=== PATIENT | male | born 1935 | race Caucasian/White ===

== ENCOUNTER 2022-07-27 17:46 | Inpatient (IN) | payer MEDICARE ==
[~2022-07-27] VITALS: Ht 165.1 cm; Wt 46.3 kg
[2022-07-27 18:09] LABS: ABG BASE EXCESS -1.9 mmol/L; ABG PCO2 24.7 mmHg (35.0-45.0); ABG PH 7.543 (7.350-7.450); ABG PO2 146.3 mmHg (75.0-100.0); COHb 0.3 % (0.5-1.5); MetHb 0.8 % (0.0-1.5); O2Hb 97.9 % (94.0-97.0); SITE, ABG Right Radial; VENT MODE, BG 15 LPM NRB
[2022-07-27 18:56] LABS: CALCIUM, SERUM 7.6 mg/dL (8.5-10.1); CARBON DIOXIDE 21 mmol/L (21-32); CHLORIDE 108 mmol/L (98-107); CREATININE 2.2 mg/dL (0.6-1.3); GLUCOSE 110 mg/dL (74-106); POTASSIUM 3.7 mmol/L (3.5-5.1); SODIUM SERUM 148 mmol/L (136-145)
[2022-07-27 19:03] LABS: ALANINE AMINOTRANSFERASE 82 U/L (12-78); ALBUMIN 1.7 g/dL (3.4-5.0); ALKALINE PHOSPHATASE 970 U/L (46-116); ASPARTATE AMINOTRANSFERASE 66 U/L (15-37); BILIRUBIN,DIRECT 0.5 mg/dL (0.0-0.2); BILIRUBIN,TOTAL 0.7 mg/dL (0.2-1.0)
[2022-07-27] MEDS ORDERED: MAGN400O6 GT (19:03)
[2022-07-27] MEDS ORDERED: IPRA12.9 INH (19:03)
[2022-07-27] MEDS ORDERED: ACET-868 GT (19:03)
[2022-07-27] MEDS ORDERED: INSU100V27 SQ ×2 (19:03)
[2022-07-27] MEDS ORDERED: ZINC50TA65 GT (19:03)
[2022-07-27] MEDS ORDERED: AMIN30LI2 GT (19:03)
[2022-07-27] MEDS ORDERED: MULT-447 GT (19:03)
[2022-07-27] MEDS ORDERED: ARGI1POW13 GT (19:03)
[2022-07-27] MEDS ORDERED: NA P133E RC (19:03)
[2022-07-27] MEDS ORDERED: ASCO-352 GT (19:03)
[2022-07-27] MEDS ORDERED: ERGO500040 GT (19:03)
[2022-07-27] MEDS ORDERED: TRAM50TA2 GT (19:03)
[2022-07-27] MEDS ORDERED: BISA10SU11 RC (19:03)
[2022-07-27] MEDS ORDERED: BUDE180A IH (19:03)
[2022-07-27] MEDS ORDERED: LANS30CA56 GT (19:03)
[2022-07-27] MEDS ORDERED: DOCU-141 GT (19:03)
[2022-07-27] MEDS ORDERED: ALBU8.5H8 IH (19:03)
[2022-07-27] MEDS ORDERED: LEVE100S GT (19:03)
[2022-07-27] MEDS ORDERED: ATOR40TA GT (19:03)
[2022-07-27] MEDS ORDERED: NUT.237L30 GT (19:03)
[2022-07-27] MEDS ORDERED: INSU100V7 SQ (19:03)
[2022-07-27 19:04] LABS: UREA NITROGEN, BLOOD 170 mg/dL (7-18)
--- NOTE | 2022-07-27 19:10 | NUR ---
PAGED DR. RUVALCABA FOR CONSULT
--- NOTE | 2022-07-27 19:11 | NUR ---
DEAN CHAVEZ FOR CONSULT
--- NOTE | 2022-07-27 19:14 | NUR ---
ROHIT CÁRDENAS -[phone], SISTER
[2022-07-27] MEDS: IPRATROPIUM BROMIDE 14 GM INHALER (or 12.9 GM) IH SCH (19:30)
--- NOTE | 2022-07-27 19:31 | NUR ---
URINE SAMPLE COLLECTED. SENT TO LAB
[2022-07-27 20:11] LABS: BASOPHILS % (AUTO) 0.1 % (0.0-2.0); LYMPHOCYTES # (AUTO) 0.9 K/uL (0.8-4.8); MEAN CORPUSCULAR HGB CONC 27 g/dl (31.0-36.0); MEAN CORPUSCULAR VOLUME 113 fL (80-96); MONOCYTES # (AUTO) 0.6 K/uL (0.1-1.30); NEUTROPHILS # (AUTO) 13.2 K/uL (1.8-8.9); NEUTROPHILS % (AUTO) 89.9 % (43.0-81.0); PLATELET COUNT (AUTO) 521 K/uL (150-450); WHITE BLOOD COUNT (AUTO) 14.7 K/uL (4.3-11.0)
[2022-07-27 20:31] LABS: HEMATOCRIT 15 % (39-51)
--- NOTE | 2022-07-27 20:32 | NUR ---
DR LUCERO ON THE PHONE WITH DR RUVALCABA NEUROSURGEON
--- NOTE | 2022-07-27 20:45 | NUR ---
CONSENT FOR BLOOD TRANSFUSION WS OBTAINED OVER THE PHONE FROM THE SISTER. WITHNESSED BY THE SECOND RN
--- NOTE | 2022-07-27 20:55 | NUR ---
ATTEMPTED TO GIVE REPORT. PER DARRYL CRUZ RN NURSE ASSIGNED TO THE PATIENT IS DISCHARGING A PATIENT RIGHT NOW. WILL CALL AGAIN
[2022-07-27 21:19] LABS: BILIRUBIN,URINE NEGATIVE (NEGATIVE); COLOR,URINE YELLOW (YELLOW); LEUKOCYTE ESTERASE ,URINE NEGATIVE (NEGATIVE); NITRITE, URINE NEGATIVE (NEGATIVE); PH,URINE 5.5 (5.0-8.0); PROTEIN,URINE NEGATIVE (NEGATIVE); UGLUCOSE NEGATIVE (NEGATIVE); UROBILINOGEN,URINE 0.2 EU/dL (0.2)
[2022-07-27 21:25] LABS: BACTERIA,URINE 2+ /HPF (None Seen); RBC,URINE 21-50 /HPF (0-2); WBC,URINE 0-2 /HPF (0-3)
[2022-07-27 21:26] LABS: SQUAMOUS EPITHELIAL CELL,UR 21-50 /HPF (None Seen)
--- NOTE | 2022-07-27 21:27 | NUR ---
TRANSFERRED TO [facility] UNDER ACLS
[2022-07-27 21:30] VITALS: BP 111/47
--- NOTE | 2022-07-27 21:30 | NUR ---
CLINICAL REHABILITATION AIDE NOTES: PT TRANSFERRED TO [facility] FROM ER [facility]IA [facility], PLACED IN ROOM 106 BED 1. PT AWAKE, NON-VERBAL. ON NON-REBREATHING AT 15L AND PT TOLERATED WELL. O2 SAT 98%. NOTED WHEEZING. IV ACCESS ON RAC#20G AND LT HAND#20G INTACT AND PATENT. NO S/S OF INFILTRATIONS. NO FACIAL GRIMACING NOTED. PT KEPT MOVING HIS MASK. APPLIED BILATERAL SOFT RESTRAINTS. BODY ASSESSMENT DONE. NOTED REDNESS ON BACK, SACRAL AREA AND RT HEEL. NOTED OPEN SKIN WITH SCAB ON RT LEG, DTI ON LT HEEL. SKIN EXCORIATION ON BOTH BUTTOCKS AREA. WOUND CARE CONSULT DONE. ALL SAFETY MEASURES IN PLACE. ON AIRBORNE/DROPLET PRECAUTION FOR COVID POSITIVE. BED IN LOWEST POSITION AND LOCKED. PLACE CALL LIGHT WITH IN REACH. WILL CONTINUE TO MONITOR
[2022-07-27] MEDS ORDERED: CEFTRIAXONE 1 G in IV D5W 50 ML IV SCH (22:00)
[2022-07-27] MEDS ORDERED: ONDANSETRON HCL/PF 4 MG/2 ML VIAL IVP PRN (22:00)
[2022-07-27] MEDS ORDERED: ACETAMINOPHEN 650 MG/SUPP.RECT RC PRN (22:00)
[2022-07-27] MEDS ORDERED: CEFTRIAXONE 1 G VIAL ONE (22:23)
[2022-07-27] MEDS: PANTOPRAZOLE 40 MG VIAL IV SCH (22:42)
[2022-07-27] MEDS: DEXAMETHASONE SOD PHOSPHATE 10 MG/ML VIAL IV SCH (22:43)
[2022-07-27] MEDS: IV NS 0.9% 1,000 ML IV PRN (22:44)
[2022-07-27] MEDS ORDERED: AZITHROMYCIN 500 MG VIAL ONE (23:16)
[2022-07-27] MEDS: AZITHROMYCIN 500 MG in IV D5W 250 ML IV SCH (23:30)
[2022-07-27 23:58] LABS: BASOPHILS % (MANUAL) 0 % (0.0-2.0); EOSINOPHILS % (MANUAL) 0 % (0-4); LYMPHOCYTES % (MANUAL) 8 % (16-48); MONOCYTES % (MANUAL) 6 % (0-11.0); NEUTROPHILS % (MANUAL) 86 (42-76)
[2022-07-28] VITALS (19 sets, daily range): BP systolic 91–125; BP diastolic 41–78
--- NOTE | 2022-07-28 01:53 | NUR ---
RN NOTES: STARTED 1 UNIT OF BLOOD TRANSFUSION. PT AFEBRILE. VITAL SIGN STABLE. WILL CONTINUE TO MONITOR
--- NOTE | 2022-07-28 02:10 | NUR ---
RN NOTES: AFTER 15 MINUTES OF TRANSFUSING BLOOD. NO ADVERSE REACTION NOTED. AFEBRILE. NO RASH NOTED. WILL CONTINUE TO MONITOR
--- NOTE | 2022-07-28 04:38 | NUR ---
RN NOTES: 1 UNIT OF BLOOD TRANSFUSION COMPLETED AND PT TOLERATED WELL. ANOTHER 1 UNIT STARTED. PT STILL AFEBRILE. NO ADVERSE REACTIONS NOTED. VITAL SIGN STABLE. WILL CONTINUE TO MONITOR
[2022-07-28] MEDS ORDERED: GLUCERNA 1.2 1,000 ML BOTTLE NG PRN (06:00)
[2022-07-28] MEDS ORDERED: DEXTROSE 50%-WATER 50 ML DISP.SYRIN IV PRN (06:00)
[2022-07-28] MEDS: BLOOD SUGAR DIAGNOSTIC 1 EACH STRIP IN SCH ×3 (06:59→18:13)
[2022-07-28] MEDS: INSULIN REGULAR, HUMAN 100 UNIT/ML 3 ML VIAL SQ PRN ×3 (07:00→17:48)
--- NOTE | 2022-07-28 07:01 | NUR ---
RN NOTES: PT'S BLOOD SUGAR 170. NO COVERAGE GIVEN. PT NPO STATUS. GTUBE FEEDING DIDN'T START YET. NO S/S OF HYPER/HYPOGLYCEMIA. WILL CONTINUE TO MONITOR
--- NOTE | 2022-07-28 07:25 | NUR ---
SUPERVISOR DRAPERY HANGING OPENING NOTES Received pt awake in bed. Non verbal and unable to follow command. On isolation for COVID. No signs of pain or discomfort at this time. Pt is on a non rebreather 15L and tolerating it well. IV access on RAC 20G and left hand 20G patent and intact. Pt is currently receiving blood transfusion and tolerating it well. HOB elevated to 30-45 degrees. Siderails up at all times. Call light within reach. Will continue to monitor.
[2022-07-28] MEDS ORDERED: ERGOCALCIFEROL (VITAMIN D 2) 50,000 UNIT CAPSULE GT SCH (09:00)
[2022-07-28] MEDS ORDERED: MULTIVITAMIN LIQ 5 ML UDC GT SCH (09:00)
[2022-07-28] MEDS ORDERED: CEFEPIME 2 GM in IV D5W 100 ML IV SCH (09:00)
[2022-07-28 09:03] LABS: BASOPHILS % (AUTO) 0.1 % (0.0-2.0); LYMPHOCYTES # (AUTO) 0.2 K/uL (0.8-4.8); LYMPHOCYTES % (AUTO) 1.4 % (20.0-44.0); MEAN CORPUSCULAR HGB CONC 31 g/dl (31.0-36.0); MEAN CORPUSCULAR VOLUME 91 fL (80-96); MONOCYTES # (AUTO) 0.2 K/uL (0.1-1.30); MONOCYTES % (AUTO) 1.5 % (2.0-12.0); NEUTROPHILS # (AUTO) 16.3 K/uL (1.8-8.9); PLATELET COUNT (AUTO) 396 K/uL (150-450); RED BLOOD CELL COUNT(AUTO) 2.19 MIL/uL (4.5-6.0); WHITE BLOOD COUNT (AUTO) 16.8 K/uL (4.3-11.0)
[2022-07-28 09:16] LABS: HEMATOCRIT 20 % (39-51); HEMOGLOBIN 6.2 g/dL (13.5-17.5)
[2022-07-28] MEDS: PANTOPRAZOLE 40 MG VIAL IV SCH (09:19)
[2022-07-28] MEDS: DEXAMETHASONE SOD PHOSPHATE 10 MG/ML VIAL IV SCH (09:19)
[2022-07-28] MEDS: ZINC SULFATE 220 MG CAPSULE PO SCH (09:21)
[2022-07-28] MEDS: DOCUSATE SODIUM 100 MG CAPSULE PO SCH (09:21)
[2022-07-28] MEDS: LEVETIRACETAM SOL (5 ML) 100 MG/ML UDC GT SCH ×2 (09:21→21:40)
[2022-07-28] MEDS: ASCORBIC ACID 500 MG TABLET GT SCH (09:22)
--- NOTE | 2022-07-28 09:30 | NUR ---
PT.EEN BY DR. MALDONADO DISCUSSED POLST DNR/DNI,WILL CONTINUE CARE IN [facility] PER MD.
[2022-07-28 09:56] LABS: CARBON DIOXIDE 19 mmol/L (21-32); CHLORIDE 114 mmol/L (98-107); CREATININE 1.8 mg/dL (0.6-1.3); GLUCOSE 211 mg/dL (74-106); POTASSIUM 3.6 mmol/L (3.5-5.1); SODIUM SERUM 152 mmol/L (136-145)
[2022-07-28 10:05] LABS: PHOSPHORUS 9.4 mg/dL (2.5-4.9); UREA NITROGEN, BLOOD 148 mg/dL (7-18)
[2022-07-28] MEDS: CEFEPIME 2 GM in IV D5W 100 ML IV SCH (10:05)
--- NOTE | 2022-07-28 10:28 | NUR ---
DR. BURKSNOTIFIED REGARDING RENAL FUNCTION.DR. QUIROZ NOTIFIED REGARDING CBC.
--- NOTE | 2022-07-28 10:28 | NUR ---
MIDLINE OBTAINED R/T MULTIPLE IV.
--- NOTE | 2022-07-28 10:44 | NUR ---
WOUND CARE CONSULT: REVIEWED CHART, NURSING DOCUMENTATION AND PHOTOS WHICH INDICATE MULTIPLE PRESSURE ULCERS PRESENT ON ADMISSION INCLUDING DEEP TISSUE INJURIES TO SACRUM AND MIDBACK, RT LOWER LEG WOUND, BILATERAL HEEL AND TOE WOUNDS, ALL PRESENT ON ADMISSION. DR FORTE AND DR VENTURA CALLED FOR SURGICAL AND DPM CONSULTS. DISCUSSED SKIN PROTECTION WITH NURSING STAFF. PT IS ON [place] ISOFLEX LOW AIRLOSS BED. MD IN AGREEMENT WITH PLAN OF CARE.
[2022-07-28] MEDS ORDERED: Z GUARD REMEDY 4 OZ OINT TP PRN (11:00)
[2022-07-28] MEDS: Z GUARD REMEDY 4 OZ OINT TP SCH (11:00)
[2022-07-28] MEDS ORDERED: VANCOMYCIN 1 GM in IV D5W 250 ML IV ONE (11:00)
[2022-07-28 13:09] LABS: BAND % (MANUAL) 23 % (0.0-5.0); LYMPHOCYTES % (MANUAL) 8 % (16-48); MONOCYTES % (MANUAL) 3 % (0-11.0); NEUTROPHILS % (MANUAL) 66 (42-76)
[2022-07-28] MEDS: MULTIVITAMINS,THERAGRAN 1 UDTAB TABLET GT SCH (13:21)
--- NOTE | 2022-07-28 13:48 | NUR ---
DENTAL TECHNOLOGIST NOTES Blood transfusion 1 unit infused. Pt tolerated the infusion well.
[2022-07-28 14:23] LABS: CHOLESTEROL 112 mg/dL (<200)
[2022-07-28 14:55] LABS: LYMPHOCYTES # (AUTO) 0.3 K/uL (0.8-4.8); LYMPHOCYTES % (AUTO) 2.5 % (20.0-44.0); MEAN CORPUSCULAR HGB CONC 29 g/dl (31.0-36.0); MEAN CORPUSCULAR VOLUME 96 fL (80-96); MONOCYTES # (AUTO) 0.3 K/uL (0.1-1.30); MONOCYTES % (AUTO) 1.9 % (2.0-12.0); NEUTROPHILS # (AUTO) 12.7 K/uL (1.8-8.9); NEUTROPHILS % (AUTO) 95.6 % (43.0-81.0); PLATELET COUNT (AUTO) 228 K/uL (150-450); WHITE BLOOD COUNT (AUTO) 13.3 K/uL (4.3-11.0)
[2022-07-28 15:18] LABS: HDL CHOLESTEROL 20 mg/dL (40-60); LDL 17 mg/dL (0-99); TRIGLYCERIDES 78 mg/dL (30-150)
[2022-07-28 15:23] LABS: HEMATOCRIT 18 % (39-51); HEMOGLOBIN 5.2 g/dL (13.5-17.5)
--- NOTE | 2022-07-28 15:37 | NUR ---
LEASE PURCHASE DRIVER NOTES Lab relayed critical lab of HGB 5.[address] Baptiste called and he ordered to repeat CBC on a fresh vein and not through barry IV lines.
[2022-07-28 16:08] LABS: HEMATOCRIT 26 % (39-51); HEMOGLOBIN 7.8 g/dL (13.5-17.5); LYMPHOCYTES # (AUTO) 0.5 K/uL (0.8-4.8); LYMPHOCYTES % (AUTO) 2.7 % (20.0-44.0); MEAN CORPUSCULAR HGB CONC 30 g/dl (31.0-36.0); MEAN CORPUSCULAR VOLUME 90 fL (80-96); MONOCYTES # (AUTO) 0.5 K/uL (0.1-1.30); MONOCYTES % (AUTO) 2.7 % (2.0-12.0); NEUTROPHILS % (AUTO) 94.6 % (43.0-81.0); PLATELET COUNT (AUTO) 376 K/uL (150-450); RED BLOOD CELL COUNT(AUTO) 2.88 MIL/uL (4.5-6.0); WHITE BLOOD COUNT (AUTO) 19.1 K/uL (4.3-11.0)
[2022-07-28 16:54] LABS: C-REACTIVE PROTEIN 41.3 mg/dL (0.0-0.9)
[2022-07-28] MEDS: IV NS 0.9% 1,000 ML IV PRN (17:35)
--- NOTE | 2022-07-28 18:26 | NUR ---
HOME ENERGY CONSULTANT SUPERVISOR CLOSING NOTES All due meds and tx given as ordered. Pt tolerated everything well. All needs attended to. No signs of pain or discomfort at this time. Pt is on a non rebreather 15L and tolerating it well. IV access on KELLEY Midline, RAC 20G and left hand 20G patent and intact. GTF running on prescribed settings. HOB elevated to 30-45 degrees. Siderails up at all times. Call light within reach. Will continue to monitor.
--- NOTE | 2022-07-28 19:50 | NUR ---
[facility] RN OPENING NOTE RECEIVED PT IN BED, ASLEEP. ON NON-REBREATHER MASK @ 15L, TOLERATING WELL. O2 SAT 98%. WHEEZING NOTED. HAS 3 IV ACCESS: KELLEY MIDLINE, RAC #20G AND LT HAND #20G, ALL INTACT AND PATENT. NO S/SX OF INFILTRATION. RUNNING NS @ 75 ML/HR. NO FACIAL GRIMACING NOTED. HAS BILATERAL SOFT RESTRAINTS. GTF RUNNING NEPRO AT 15 ML/HR. PT TOLERATING WELL. HAS F/C DRAINING DYLAN YELLOW URINE. ALL SAFETY MEASURES IN PLACE. ON AIRBORNE/DROPLET PRECAUTION FOR COVID POSITIVE. BED LOCKED IN LOWEST POSITION AND LOCKED. PLACE CALL LIGHT WITH IN REACH. SIDE RAILS UP X3. WILL CONTINUE TO MONITOR.
[2022-07-28] MEDS: IPRATROPIUM BROMIDE 14 GM INHALER (or 12.9 GM) IH SCH (20:46)
[2022-07-28] MEDS: ATORVASTATIN 40 MG TABLET GT SCH (21:40)
[2022-07-28] MEDS: AZITHROMYCIN 500 MG in IV D5W 250 ML IV SCH (21:41)
[2022-07-29] VITALS: BP 116/53
[2022-07-29] MEDS: BLOOD SUGAR DIAGNOSTIC 1 EACH STRIP IN SCH ×5 (00:42→23:06)
[2022-07-29] MEDS: INSULIN REGULAR, HUMAN 100 UNIT/ML 3 ML VIAL SQ PRN ×5 (00:46→23:09)
--- NOTE | 2022-07-29 00:50 | NUR ---
MARY RN NOTE PATIENT'S BLOOD SUGAR 281. 6 UNITS OF REGULAR INSULIN ADMINISTERED. NO S/SX OF HYPER/HYPOGLYCEMIA. WILL CONTINUE TO MONITOR.
[2022-07-29] MEDS: IPRATROPIUM BROMIDE 14 GM INHALER (or 12.9 GM) IH SCH ×7 (01:10→23:43)
[2022-07-29 04:00] VITALS: BP 108/45
[2022-07-29 06:12] LABS: HEMATOCRIT 25 % (39-51); HEMOGLOBIN 7.8 g/dL (13.5-17.5); LYMPHOCYTES # (AUTO) 0.3 K/uL (0.8-4.8); LYMPHOCYTES % (AUTO) 1.5 % (20.0-44.0); MEAN CORPUSCULAR HGB CONC 32 g/dl (31.0-36.0); MEAN CORPUSCULAR VOLUME 88 fL (80-96); MONOCYTES # (AUTO) 0.6 K/uL (0.1-1.30); MONOCYTES % (AUTO) 2.7 % (2.0-12.0); NEUTROPHILS # (AUTO) 20.1 K/uL (1.8-8.9); NEUTROPHILS % (AUTO) 95.8 % (43.0-81.0); PLATELET COUNT (AUTO) 357 K/uL (150-450)
[2022-07-29 06:19] LABS: CALCIUM, SERUM 7.4 mg/dL (8.5-10.1); CARBON DIOXIDE 21 mmol/L (21-32); CHLORIDE 122 mmol/L (98-107); CREATININE 1.4 mg/dL (0.6-1.3); GLUCOSE 281 mg/dL (74-106); POTASSIUM 3.2 mmol/L (3.5-5.1)
[2022-07-29 06:32] LABS: SODIUM SERUM 157 mmol/L (136-145); UREA NITROGEN, BLOOD 122 mg/dL (7-18)
--- NOTE | 2022-07-29 06:36 | NUR ---
MARY RN CLOSING NOTE PT IN BED, ASLEEP. ON NON-REBREATHER MASK @ 15L, TOLERATING WELL. O2 SAT 98%. WHEEZING NOTED. ON TELE MONITOR ST WITH BBB HR OF 107. HAS 3 IV ACCESS: KELLEY MIDLINE, RAC #20G AND LT HAND #20G, ALL INTACT AND PATENT. NO S/SX OF INFILTRATION. RUNNING NS @ 75 ML/HR. HAS BILATERAL SOFT RESTRAINTS. GTF RUNNING NEPRO AT 30 ML/HR. PT TOLERATING WELL. HAS F/C DRAINING DYLAN YELLOW URINE. ALL SAFETY MEASURES IN PLACE. ON AIRBORNE/DROPLET PRECAUTION FOR COVID POSITIVE. BED LOCKED IN LOWEST POSITION, CALL LIGHT WITH IN REACH, SIDE RAILS UP X3. WILL ENDORSE TO ONCOMING NURSE FOR ALVIN.
--- NOTE | 2022-07-29 06:43 | NUR ---
RN NOTES: RECEIVED CRITICAL LAB RESULT, PT'S SODIUM LEVEL TRENDING UP FROM [address] BARI YOU. NNO AT THIS MOMENT.
[2022-07-29 07:43] LABS: OCCULT BLOOD STOOL POSITIVE (NEGATIVE)
--- NOTE | 2022-07-29 07:45 | NUR ---
SOAPING DEPARTMENT SUPERVISOR OPENING NOTE RECEIVED PT ASLEEP IN BED. PT NONVERBAL. PT ON ISOLATION PRECAUTIONS DUE TO COVID. NO SIGNS OF PAIN OR DISCOMFORT NOTED AT THIS TIME. PT IS ON 4-6 L NASAL CANNULA TOLERATING WELL AT 94%. PT HAS R UA ML, RAC 20 GUAGE, LEFT HAND 24 GUAGE. IV PATENT, INTACT AND FLUSHING WELL. PT HAS SOFT BILATERAL SOFT WRIST RESTRAINTS NO SKIN OR CIRCULATION ISSUES NOTED AT THIS TIME. PT IS ON GTUBE NEPHRO @ 30 ML/HR. NO RESIDUAL VOLUME NOTED AT THIS TIME. ALL SAFETY MEASURES IN PLACE. CALL LIGHT WITHIN REACH. BED LOCKED AT LOWEST POSITION. SIDE RAILS UP X2. BED ALARM ON
[2022-07-29] MEDS: IV NS 0.9% 1,000 ML IV PRN (07:59)
[2022-07-29 08:00] VITALS: BP 107/49
[2022-07-29] MEDS: DOCUSATE SODIUM 100 MG CAPSULE PO SCH (08:04)
[2022-07-29] MEDS: LEVETIRACETAM SOL (5 ML) 100 MG/ML UDC GT SCH ×2 (08:04→21:07)
[2022-07-29] MEDS: ASCORBIC ACID 500 MG TABLET GT SCH (08:04)
[2022-07-29] MEDS: MULTIVITAMINS,THERAGRAN 1 UDTAB TABLET GT SCH (08:04)
[2022-07-29] MEDS: DEXAMETHASONE SOD PHOSPHATE 10 MG/ML VIAL IV SCH (08:04)
[2022-07-29] MEDS: ZINC SULFATE 220 MG CAPSULE PO SCH (08:04)
[2022-07-29] MEDS: PANTOPRAZOLE 40 MG VIAL IV SCH ×2 (08:04→17:09)
[2022-07-29] MEDS: CEFEPIME 2 GM in IV D5W 100 ML IV SCH (10:19)
[2022-07-29] MEDS: IV D5W 1,000 ML IV PRN (11:28)
[2022-07-29 12:00] VITALS: BP_SYST 117; BP_DIAS 59; BP_DIAS 79
--- NOTE | 2022-07-29 12:00 | NUR ---
RN NOTE NOTIFIED THAT PT IS POSTIVE OCCULT BLOOD STOOL AND SODIUM IS 157. SAID TO ORDER D5 FLUIDS AT 75 ML/HR. ORDERS NOTED AND CARRIED OUT
--- NOTE | 2022-07-29 12:00 | NUR ---
RN NOTE inhaler not given due to pt altered mental status and uncooperative at this time
[2022-07-29] MEDS: POTASSIUM CHLORIDE 20 MEQ POWDER PACKET NG SCH ×2 (12:12→14:22)
[2022-07-29 12:44] LABS: BAND % (MANUAL) 15 % (0.0-5.0); LYMPHOCYTES % (MANUAL) 5 % (16-48); MONOCYTES % (MANUAL) 3 % (0-11.0); NEUTROPHILS % (MANUAL) 77 (42-76)
[2022-07-29 16:00] VITALS: BP 134/73
[2022-07-29] MEDS: Z GUARD REMEDY 4 OZ OINT TP SCH (18:36)
--- NOTE | 2022-07-29 19:22 | NUR ---
ROD HANGER CLOSING NOTE PT ASLEEP IN BED. PT NONVERBAL. PT ON TELE MONITOR SINUS RHYTM. PT ON ISOLATION PRECAUTIONS DUE TO COVID. NO SIGNS OF PAIN OR DISCOMFORT NOTED AT THIS TIME. PT IS ON 10 L NONREBREATHER MASK AT 100%. PT HAS R UA ML, RAC 20 GAUGE, LEFT HAND 24 GUAGE. IV PATENT, INTACT AND FLUSHING WELL. PT HAS SOFT BILATERAL SOFT WRIST RESTRAINTS NO SKIN OR CIRCULATION ISSUES NOTED AT THIS TIME. PT IS ON GTUBE NEPHRO @ 30 ML/HR. NO RESIDUAL VOLUME NOTED AT THIS TIME. ALL SAFETY MEASURES IN PLACE. CALL LIGHT WITHIN REACH. BED LOCKED AT LOWEST POSITION. SIDE RAILS UP X2. BED ALARM ON.ENDORSED TO PURSE SEINING HAND RN FOR CONTUITY OF CARE
--- NOTE | 2022-07-29 19:30 | NUR ---
MARY RN OPENING NOTE RECEIVED PT IN BED, ASLEEP, ON NON-REBREATHER MASK @ 10L, TOLERATING WELL. O2 SAT 98%. ON TELE MONITOR SR WITH HR 94. HAS 3 IV ACCESS: KELLEY MIDLINE, RAC #20G AND LT HAND #20G, ALL INTACT AND PATENT. NO S/SX OF INFILTRATION. INFUSING D5 @ 75 ML/HR. NO FACIAL GRIMACING NOTED. HAS BILATERAL SOFT RESTRAINTS. GTF RUNNING NEPRO AT 30 ML/HR. PT TOLERATING WELL. HAS F/C DRAINING DYLAN YELLOW URINE. ALL SAFETY MEASURES IN PLACE. ON AIRBORNE/DROPLET PRECAUTION FOR COVID POSITIVE. BED LOCKED IN LOWEST POSITION AND LOCKED. PLACE CALL LIGHT WITH IN REACH. SIDE RAILS UP X3. WILL CONTINUE TO MONITOR.
[2022-07-29 20:00] VITALS: BP 125/66
[2022-07-29] MEDS: AZITHROMYCIN 500 MG in IV D5W 250 ML IV SCH (21:06)
[2022-07-29] MEDS: ATORVASTATIN 40 MG TABLET GT SCH (21:07)
[2022-07-29] MEDS ORDERED: VANCOMYCIN 0.75 GM in IV D5W 250 ML IV SCH (23:00)
--- NOTE | 2022-07-29 23:29 | NUR ---
MARY RN NOTE PATIENT'S BLOOD SUGAR IS 381. 10 UNITS OF REGULAR INSULIN ADMINISTERED. NO S/SX OF HYPER/HYPOGLYCEMIA. WILL CONTINUE TO MONITOR.
[2022-07-30] VITALS: BP 112/58
[2022-07-30] MEDS: IV D5W 1,000 ML IV PRN ×2 (02:01→16:37)
[2022-07-30] MEDS: IPRATROPIUM BROMIDE 14 GM INHALER (or 12.9 GM) IH SCH ×5 (03:32→23:30)
[2022-07-30 04:00] VITALS: BP 125/58
[2022-07-30] MEDS: BLOOD SUGAR DIAGNOSTIC 1 EACH STRIP IN SCH ×4 (05:16→23:28)
[2022-07-30] MEDS: INSULIN REGULAR, HUMAN 100 UNIT/ML 3 ML VIAL SQ PRN ×4 (05:18→23:29)
--- NOTE | 2022-07-30 06:42 | NUR ---
MARY RN CLOSING NOTE PT IN BED, ASLEEP, ON NON-REBREATHER MASK @ 10L, TOLERATING WELL. O2 SAT @ 100%. ON TELE MONITOR SR WITH HR 84. HAS 3 IV ACCESS: KELLEY MIDLINE, LT HAND #20G RAC #20G INFUSING D5W AT 75 ML/HR , ALL INTACT AND PATENT. NO S/SX OF INFILTRATION. NO FACIAL GRIMACING NOTED. HAS BILATERAL SOFT RESTRAINTS. GTF INFUSING NEPRO AT 30 ML/HR. NO RESIDUAL NOTED, TOLERATING WELL. HAS F/C DRAINING DYLAN YELLOW URINE. ON AIRBORNE/DROPLET PRECAUTIONS (COVID POSITIVE). ALL DUE MEDS WERE GIVEN AND NEEDS ATTENDED. SAFETY MEASURES MAINTAINED: BED LOCKED AND IN LOWEST POSITION, CALL LIGHT WITHIN REACH, SIDE RAILS UP X3. WILL ENDORSE TO ONCOMING NURSE FOR ALVIN.
[2022-07-30 06:57] LABS: CALCIUM, SERUM 7.5 mg/dL (8.5-10.1); CREATININE 1.1 mg/dL (0.6-1.3); POTASSIUM 3.8 mmol/L (3.5-5.1)
[2022-07-30 08:00] VITALS: BP 115/53
[2022-07-30] MEDS: PANTOPRAZOLE 40 MG VIAL IV SCH ×2 (08:12→16:37)
[2022-07-30] MEDS: MULTIVITAMINS,THERAGRAN 1 UDTAB TABLET GT SCH (08:12)
[2022-07-30] MEDS: ASCORBIC ACID 500 MG TABLET GT SCH (08:12)
[2022-07-30] MEDS: LEVETIRACETAM SOL (5 ML) 100 MG/ML UDC GT SCH ×2 (08:12→20:48)
[2022-07-30] MEDS: DEXAMETHASONE SOD PHOSPHATE 10 MG/ML VIAL IV SCH (08:12)
[2022-07-30] MEDS: Z GUARD REMEDY 4 OZ OINT TP SCH (08:15)
[2022-07-30] MEDS: ZINC SULFATE 220 MG CAPSULE PO SCH (08:15)
[2022-07-30] MEDS: DOCUSATE SODIUM LIQ 100 MG/10 ML UDC GT SCH (08:15)
[2022-07-30 08:18] LABS: BASOPHILS % (AUTO) 0.1 % (0.0-2.0); HEMATOCRIT 24 % (39-51); HEMOGLOBIN 7.3 g/dL (13.5-17.5); LYMPHOCYTES # (AUTO) 0.3 K/uL (0.8-4.8); LYMPHOCYTES % (AUTO) 1.6 % (20.0-44.0); MEAN CORPUSCULAR HGB CONC 31 g/dl (31.0-36.0); MEAN CORPUSCULAR VOLUME 90 fL (80-96); MONOCYTES # (AUTO) 0.4 K/uL (0.1-1.30); NEUTROPHILS # (AUTO) 20.4 K/uL (1.8-8.9); NEUTROPHILS % (AUTO) 96.3 % (43.0-81.0); PLATELET COUNT (AUTO) 293 K/uL (150-450); RED BLOOD CELL COUNT(AUTO) 2.65 MIL/uL (4.5-6.0); WHITE BLOOD COUNT (AUTO) 21.2 K/uL (4.3-11.0)
[2022-07-30] MEDS ORDERED: PANTOPRAZOLE 40 MG/PACK PACK GT SCH (09:00)
[2022-07-30] MEDS: CEFEPIME 2 GM in IV D5W 100 ML IV SCH ×2 (09:13→21:01)
[2022-07-30 12:11] VITALS: BP 118/52
[2022-07-30 12:44] LABS: BAND % (MANUAL) 5 % (0.0-5.0); LYMPHOCYTES % (MANUAL) 4 % (16-48); MONOCYTES % (MANUAL) 3 % (0-11.0); NEUTROPHILS % (MANUAL) 88 (42-76)
[2022-07-30] MEDS: VANCOMYCIN 500 MG in IV D5W 100 ML IV SCH (12:53)
[2022-07-30] MEDS ORDERED: IPRATROPIUM BROMIDE 14 GM INHALER (or 12.9 GM) ONE (13:50)
[2022-07-30 16:00] VITALS: BP 131/67
--- NOTE | 2022-07-30 17:59 | NUR ---
RN NOTE BLOOD SUGAR AT 1800 WAS 400 MG/DL .REPORT WAS GIVEN TO THE DR QUIROZ .ORDER TO D/C D5 IVF DISCONTINUE,START 1/2 NS AT 75 ML/HR , GIVE 10 UNITS OF REGULAR INSULIN
[2022-07-30] MEDS ORDERED: IV 1/2NS 1000 ML 1,000 ML IV SCH (18:00)
--- NOTE | 2022-07-30 18:39 | NUR ---
RN CLOSING NOTE PT IN BED, ASLEEP, ON NON-REBREATHER MASK @ 10L, TOLERATING WELL. O2 SAT 98%. ON TELE MONITOR SR WITH HR 99. HAS 3 IV ACCESS: KELLEY MIDLINE, RAC #20G AND LT HAND #20G, ALL INTACT AND PATENT. NO S/SX OF INFILTRATION. INFUSING 1/2 OF NS @ 75 ML/HR. NO FACIAL GRIMACING NOTED. HAS BILATERAL SOFT RESTRAINTS. GTF RUNNING NEPRO AT 30 ML/HR. PT TOLERATING WELL. HAS F/C DRAINING DYLAN YELLOW URINE. ALL SAFETY MEASURES IN PLACE. ON AIRBORNE/DROPLET PRECAUTION FOR COVID POSITIVE. BED LOCKED IN LOWEST POSITION AND LOCKED. PLACE CALL LIGHT WITH IN REACH. SIDE RAILS UP X3. ALL MEDICATIONS WERE ADMINISTRED , ALL NEEDS WERE MET .WILL I=ENDORSE UROLOGIST PHYSICIAN NURSE TO FALLOW POC
[2022-07-30] MEDS: NEPRO 1,000 ML BOTTLE GT PRN (19:00)
--- NOTE | 2022-07-30 19:18 | NUR ---
RN NOTE RECEIVED PT FOR CONTINUITY OF CARE. NON VERBAL PATIENT IN NO S/SX OF ACUTE DISTRESS AT THIS TIME; CURRENTLY ON 15L OF 02 VIA NRB MASK; WITH 02 SAT >95% AT THIS TIME. WITH IV ACCESS ON THE FOLLOWING R AC#20, L HAND#20 AND R UA MIDLINE#18 ALL PATENT, INTACT AND FLUSHING WELL. IV FLUIDS INFUSING ORDERED AND TUBE FEEDING RUNNING ORDERED. VARELA CATH IN PLACE, MODERATE URINE OUTPUT NOTED. WITH BILATERAL SOFT RESTRAINTS IN PLACED, MONITORED AND ASSESSED PER PROTOCOL. WILL ENSURE SAFETY MEASURES WITHIN THE SHIFT. PATIENT BED ALARM IS ON. HEAD OF BED ELEVATED. BED IS LOCKED, IN LOWEST POSITION AND SIDE RAILS UP. CALL LIGHT WITHIN REACH OF THE PATIENT. APPLICABLE ISOLATION PRECAUTIONS IN PLACE. WILL CONTINUE TO MONITOR AND REASSESS FOR ANY CHANGES AND WILL CARRY OUT ANY ONGOING AND ACTIVE MD ORDER.
--- NOTE | 2022-07-30 19:45 | NUR ---
RN NOTE NOTED PT TO BE ON LABORED BREATHING WITH O2 SAT <88%, PT CURRENTLY ON 15L OF O2 VIA NRB MASKS. REPOSITIONING AND SUCTION DONE, COORDINATED WITH RT;PROVIDED DEEP SUCTION. STATUS UPDATE GIVEN TO MAGDALENO MOORE (CLAIRE CANDELARIA). NO NEW ORDERS. Addendum: 07/30/22 at 2000 by ORLANDO CARDENAS RN STATUS IMPROVED, O2 SAT >92% WILL CONTINUE TO MONITOR
[2022-07-30 20:00] VITALS: BP 121/58
[2022-07-30] MEDS: ATORVASTATIN 40 MG TABLET GT SCH (21:01)
[2022-07-30] MEDS: AZITHROMYCIN 500 MG in IV D5W 250 ML IV SCH (21:01)
[2022-07-31] VITALS: BP 155/68
[2022-07-31] MEDS: VANCOMYCIN 500 MG in IV D5W 100 ML IV SCH ×2 (02:13→12:26)
[2022-07-31] MEDS: IPRATROPIUM BROMIDE 14 GM INHALER (or 12.9 GM) IH SCH ×6 (03:30→23:30)
[2022-07-31 04:00] VITALS: BP 147/65
--- NOTE | 2022-07-31 04:00 | NUR ---
RN NOTE PATIENT REMAINED TO BE IN NO SIGNS OF ACUTE RESPIRATORY DISTRESS , VITAL SIGNS STABLE AT THIS TIME. REGULAR TURNING AND REPOSITIONING DONE, SUCTIONING DONE, WOUND CARE AND AM PATIENT CARE RENDERED WILL CONTINUE TO MONITOR AND REASSESS FOR ANY CHANGES THROUGHOUT THE SHIFT.
[2022-07-31] MEDS: BLOOD SUGAR DIAGNOSTIC 1 EACH STRIP IN SCH ×3 (05:20→17:17)
[2022-07-31] MEDS: INSULIN REGULAR, HUMAN 100 UNIT/ML 3 ML VIAL SQ PRN ×3 (05:21→17:19)
--- NOTE | 2022-07-31 05:40 | NUR ---
RN NOTE PT NOTED TO HAVE EPISODE OF LABORED BREATHING O2 SAT <88%, SUCTIONING DONE AND MAINTAINED HEAD OF BED ELEVATED, O2 STA STILL SUSTAINING <88%. COORDINATED WITH RT AND REQUESTED FOR ASSISTANCE. AWAITING RT INTERVENTION. RETAIL SERVICE SPECIALIST MADE AWARE. Addendum: 07/31/22 at 0613 by ORLANDO CARDENAS RN RT INTERVENTION DONE; PT STATUS IMPROVED. O2 SAT >93%
[2022-07-31] MEDS: IV 1/2NS 1000 ML 1,000 ML IV PRN ×2 (06:25→21:19)
--- NOTE | 2022-07-31 06:49 | NUR ---
RN CLOSING NOTE PATIENT REMAINS IN ROOM IN NO SIGNS OF RESPIRATORY DISTRESS AT THIS TIME, PATIENT STILL ON 15L OF 02 VIA NRB MASK ;TOLERATING WELL SATURATING @ >95% SP02. 2X EPISODES OF DESATURATION DURING THE SHIFT; INTERVENTIONS RENDERED AND ALL DISCIPLINES AWARE. SAFETY MEASURES IMPLEMENTED, BED IN LOWEST POSITION, LOCKED, SIDE RAILS UP, CALL LIGHT WITHIN REACH. ALL NEEDS AND ORDERS ADDRESSED DURING THE SHIFT. IV ACCESS MAINTAINED INTACT, SECURED AND FLUSHING WELL. IV FLUID AND TUBE FEEDING RUNNING PER MD ORDER. ALL DUE MEDS GIVEN ORDERED & SCHEDULED ; PATIENT TOLERATED WELL. PATIENT KEPT CLEAN AND COMFORTABLE WITHIN THE SHIFT. PATIENT ENDORSED TO INCOMING SHIFT RN WITH STABLE VITAL SIGN AND FOR CONTINUITY OF CARE.
--- NOTE | 2022-07-31 07:25 | NUR ---
RN OPEN NOTE PT IN BED, ASLEEP, ON NON-REBREATHER MASK @ 15L, TOLERATING WELL. O2 SAT 98%. ON TELE MONITOR SR WITH HR 99. HAS 3 IV ACCESS: KELLEY MIDLINE, RAC #20G AND LT HAND #20G, ALL INTACT AND PATENT. NO S/SX OF INFILTRATION. INFUSING 1/2 OF NS @ 75 ML/HR. NO FACIAL GRIMACING NOTED. HAS BILATERAL SOFT RESTRAINTS. GTF RUNNING NEPRO AT 30 ML/HR. PT TOLERATING WELL. HAS F/C DRAINING DYLAN YELLOW URINE. ALL SAFETY MEASURES IN PLACE. ON AIRBORNE/DROPLET PRECAUTION FOR COVID POSITIVE. BED LOCKED IN LOWEST POSITION AND LOCKED. PLACE CALL LIGHT WITH IN REACH. SIDE RAILS UP X3. WILL CONTINUE TO MONITOR
[2022-07-31 07:34] LABS: CALCIUM, SERUM 7.8 mg/dL (8.5-10.1); CREATININE 1.1 mg/dL (0.6-1.3); POTASSIUM 4.5 mmol/L (3.5-5.1)
[2022-07-31 08:12] VITALS: BP 126/64
[2022-07-31 08:34] LABS: BASOPHILS % (AUTO) 0.2 % (0.0-2.0); HEMATOCRIT 28 % (39-51); HEMOGLOBIN 7.7 g/dL (13.5-17.5); LYMPHOCYTES # (AUTO) 0.8 K/uL (0.8-4.8); LYMPHOCYTES % (AUTO) 3.4 % (20.0-44.0); MEAN CORPUSCULAR HGB CONC 27 g/dl (31.0-36.0); MEAN CORPUSCULAR VOLUME 99 fL (80-96); MONOCYTES # (AUTO) 0.6 K/uL (0.1-1.30); MONOCYTES % (AUTO) 2.5 % (2.0-12.0); NEUTROPHILS # (AUTO) 21.8 K/uL (1.8-8.9); NEUTROPHILS % (AUTO) 93.9 % (43.0-81.0); PLATELET COUNT (AUTO) 278 K/uL (150-450); RED BLOOD CELL COUNT(AUTO) 2.88 MIL/uL (4.5-6.0); WHITE BLOOD COUNT (AUTO) 23.2 K/uL (4.3-11.0)
[2022-07-31] MEDS: PANTOPRAZOLE 40 MG VIAL IV SCH ×2 (08:36→16:25)
[2022-07-31] MEDS: LEVETIRACETAM SOL (5 ML) 100 MG/ML UDC GT SCH ×2 (08:36→21:19)
[2022-07-31] MEDS: DOCUSATE SODIUM LIQ 100 MG/10 ML UDC GT SCH (08:36)
[2022-07-31] MEDS: ASCORBIC ACID 500 MG TABLET GT SCH (08:37)
[2022-07-31] MEDS: DEXAMETHASONE SOD PHOSPHATE 10 MG/ML VIAL IV SCH (08:37)
[2022-07-31] MEDS: ZINC SULFATE 220 MG CAPSULE PO SCH (08:39)
[2022-07-31] MEDS: MULTIVITAMINS,THERAGRAN 1 UDTAB TABLET GT SCH (08:39)
[2022-07-31] MEDS: Z GUARD REMEDY 4 OZ OINT TP SCH (08:44)
[2022-07-31] MEDS: CEFEPIME 2 GM in IV D5W 100 ML IV SCH ×2 (08:58→21:24)
[2022-07-31 12:00] VITALS: BP 141/79
[2022-07-31 16:07] VITALS: BP 141/73
[2022-07-31] MEDS: NEPRO 1,000 ML BOTTLE GT PRN (16:24)
--- NOTE | 2022-07-31 18:47 | NUR ---
RN CLOSING NOTE PT IN BED, OBTUNDED ON NON-REBREATHER MASK @ 15L, TOLERATING WELL. O2 SAT 98%. ON TELE MONITOR SR WITH HR 99. HAS 3 IV ACCESS: KELLEY MIDLINE, RAC #20G AND LT HAND #20G, ALL INTACT AND PATENT. NO S/SX OF INFILTRATION. INFUSING 1/2 OF NS @ 75 ML/HR. NO FACIAL GRIMACING NOTED. HAS BILATERAL SOFT RESTRAINTS. GTF RUNNING NEPRO AT 30 ML/HR. PT TOLERATING WELL. HAS F/C DRAINING DYLAN YELLOW URINE. ALL SAFETY MEASURES IN PLACE. ON AIRBORNE/DROPLET PRECAUTION FOR COVID POSITIVE. BED LOCKED IN LOWEST POSITION AND LOCKED. PLACE CALL LIGHT WITH IN REACH. SIDE RAILS UP X3. CHELSI RISK MANAGEMENT MANAGER NURSE TO FALLOW POC.
[2022-07-31 20:00] VITALS: BP 148/73
[2022-07-31] MEDS: ATORVASTATIN 40 MG TABLET GT SCH (21:19)
[2022-07-31] MEDS: AZITHROMYCIN 500 MG in IV D5W 250 ML IV SCH (21:25)
[2022-07-31 22:39] LABS: BAND % (MANUAL) 3 % (0.0-5.0); LYMPHOCYTES % (MANUAL) 4 % (16-48); MONOCYTES % (MANUAL) 1 % (0-11.0); NEUTROPHILS % (MANUAL) 92 (42-76)
[2022-08-01] VITALS: BP 142/75
[2022-08-01] MEDS: VANCOMYCIN 500 MG in IV D5W 100 ML IV SCH ×2 (00:15→14:04)
[2022-08-01] MEDS: BLOOD SUGAR DIAGNOSTIC 1 EACH STRIP IN SCH ×4 (00:21→18:16)
[2022-08-01] MEDS: INSULIN REGULAR, HUMAN 100 UNIT/ML 3 ML VIAL SQ PRN ×4 (00:22→18:18)
--- NOTE | 2022-08-01 02:30 | NUR ---
RN NOTE PT NOTED TO HAVE EPISODE OF LABORED BREATHING O2 SAT <88%, SUCTIONING DONE AND MAINTAINED HEAD OF BED ELEVATED, O2 STA STILL SUSTAINING <88%. COORDINATED WITH RT AND DEEP SUCTIONING DONE. NOTIFIED MAGDALENO BOSS NP) ACKNOWLEDGED. MD ORDER FOR DOUBLE SETUP HIGHFLOW +NRB MASK. RT INFORMED. RETAIL ASSISTANT MANAGER MADE AWARE. Addendum: 08/01/22 at 0332 by ORLANDO CARDENAS RN PRN HIGH FLOW PER MAGDALENO BOSS)
[2022-08-01] MEDS: IPRATROPIUM BROMIDE 14 GM INHALER (or 12.9 GM) IH SCH ×6 (03:32→23:30)
[2022-08-01 04:00] VITALS: BP 130/62
[2022-08-01 06:31] LABS: POTASSIUM 4.3 mmol/L (3.5-5.1)
--- NOTE | 2022-08-01 06:42 | NUR ---
RN CLOSING NOTE PATIENT REMAINS IN ROOM IN NO SIGNS OF RESPIRATORY DISTRESS AT THIS TIME, PATIENT STILL ON 15L OF 02 VIA NRB MASK ;TOLERATING WELL SATURATING @ >95% SP02. HIGH FLOW PRN ON STANDBY IF PT DESATURATES WITH NRB MASK O2 SUPPORT. SAFETY MEASURES IMPLEMENTED, BED IN LOWEST POSITION, LOCKED, SIDE RAILS UP, CALL LIGHT WITHIN REACH. ALL NEEDS AND ORDERS ADDRESSED DURING THE SHIFT. IV ACCESS MAINTAINED INTACT, SECURED AND FLUSHING WELL. IV FLUID AND TUBE FEEDING RUNNING PER MD ORDER. ALL DUE MEDS GIVEN ORDERED & SCHEDULED ; PATIENT TOLERATED WELL. BILATERAL SOFT RESTRAINTS RENEWED. PATIENT KEPT CLEAN AND COMFORTABLE WITHIN THE SHIFT. PATIENT ENDORSED TO INCOMING SHIFT RN WITH STABLE VITAL SIGN AND FOR CONTINUITY OF CARE.
--- NOTE | 2022-08-01 07:00 | NUR ---
MARY RN OPENING NOTE: PT IN BED, ASLEEP, ON NON-REBREATHER MASK @ 15L, TOLERATING WELL. O2 SAT 97%. ON TELE MONITOR SR WITH HR 99. HAS 3 IV ACCESS: KELLEY MIDLINE, RAC #20G AND LT HAND #20G, ALL INTACT AND PATENT. NO S/SX OF INFILTRATION. INFUSING 1/2 OF NS @ 75 ML/HR. NO FACIAL GRIMACING NOTED. HAS BILATERAL SOFT RESTRAINTS. GTF RUNNING NEPRO AT 30 ML/HR. PT TOLERATING WELL. HAS F/C DRAINING DYLAN YELLOW URINE. ALL SAFETY MEASURES IN PLACE. ON AIRBORNE/DROPLET PRECAUTION FOR COVID POSITIVE. BED LOCKED IN LOWEST POSITION AND LOCKED. PLACE CALL LIGHT WITH IN REACH. SIDE RAILS UP X3. WILL CONTINUE TO MONITOR
[2022-08-01 08:00] VITALS: BP 120/58
[2022-08-01 08:10] LABS: BASOPHILS % (AUTO) 0.1 % (0.0-2.0); HEMATOCRIT 22 % (39-51); LYMPHOCYTES # (AUTO) 0.5 K/uL (0.8-4.8); LYMPHOCYTES % (AUTO) 2.3 % (20.0-44.0); MEAN CORPUSCULAR HGB CONC 29 g/dl (31.0-36.0); MEAN CORPUSCULAR VOLUME 90 fL (80-96); MONOCYTES % (AUTO) 4.3 % (2.0-12.0); NEUTROPHILS # (AUTO) 22.2 K/uL (1.8-8.9); NEUTROPHILS % (AUTO) 93.3 % (43.0-81.0); PLATELET COUNT (AUTO) 279 K/uL (150-450); RED BLOOD CELL COUNT(AUTO) 2.41 MIL/uL (4.5-6.0); WHITE BLOOD COUNT (AUTO) 23.8 K/uL (4.3-11.0)
[2022-08-01 08:12] LABS: HEMOGLOBIN 6.4 g/dL (13.5-17.5)
[2022-08-01] MEDS: MULTIVITAMINS,THERAGRAN 1 UDTAB TABLET GT SCH (09:15)
[2022-08-01] MEDS: ASCORBIC ACID 500 MG TABLET GT SCH (09:15)
[2022-08-01] MEDS: DEXAMETHASONE SOD PHOSPHATE 10 MG/ML VIAL IV SCH (09:15)
[2022-08-01] MEDS: PANTOPRAZOLE 40 MG VIAL IV SCH ×2 (09:16→16:10)
[2022-08-01] MEDS: LEVETIRACETAM SOL (5 ML) 100 MG/ML UDC GT SCH ×2 (09:16→21:04)
[2022-08-01] MEDS: DOCUSATE SODIUM LIQ 100 MG/10 ML UDC GT SCH (09:16)
[2022-08-01] MEDS: ZINC SULFATE 220 MG CAPSULE PO SCH (09:17)
[2022-08-01] MEDS: Z GUARD REMEDY 4 OZ OINT TP SCH (09:18)
[2022-08-01] MEDS: CEFEPIME 2 GM in IV D5W 100 ML IV SCH ×2 (09:22→21:04)
--- NOTE | 2022-08-01 09:28 | NUR ---
RN NOTES: DR KANG WAS MAKING ROUND MADE AWARE HEMOGLOBIN WAS 6.4 AND THE REDRAW WAS 7.0 WITH ORDER TO TRANSFUSE 1 UNIT PRBC
[2022-08-01 12:00] VITALS: BP 122/68
--- NOTE | 2022-08-01 13:00 | NUR ---
RT NOTE: PER MUNICIPAL SERVICES MANAGER SOON AND NEEDED ORDER PATIENT PLACE ON HIGH FLOW NASAL CANNULA. FI02 100% AT 40LPM DUE TO LOW SP02.
[2022-08-01] MEDS: IV 1/2NS 1000 ML 1,000 ML IV PRN (13:02)
--- NOTE | 2022-08-01 14:20 | NUR ---
RN notes: blood transfusion completed without any complications,v/s bp 133/65,temp 97.8,pulse 106,RR 22, O2 sat 99%
[2022-08-01 16:00] VITALS: BP 137/71
[2022-08-01 17:34] LABS: BAND % (MANUAL) 5 % (0.0-5.0); LYMPHOCYTES % (MANUAL) 7 % (16-48); MONOCYTES % (MANUAL) 5 % (0-11.0); NEUTROPHILS % (MANUAL) 83 (42-76)
--- NOTE | 2022-08-01 18:30 | NUR ---
RN NOTES: BLOOD SUGAR 412, 10 UNIT GIVEN PER PROTOCOL, ORDERED STAT RANDOM GLUCOSE PER PROTOCOL, AND PAGED DR KANG, AWAITING FOR CALL BACK
--- NOTE | 2022-08-01 19:05 | NUR ---
RN CLOSING NOTE PATIENT REMAINS IN ROOM IN NO SIGNS OF RESPIRATORY DISTRESS AT THIS TIME, PATIENT STILL ON 15L OF 02 VIA NRB MASK ;TOLERATING WELL SATURATING @ >95% SP02. HIGH FLOW TRIAL DONE WITH EPISODE OF DESATURATION, PER RT WE CAN USE BOTH. WITH NRB MASK O2 SUPPORT. SAFETY MEASURES IMPLEMENTED, BED IN LOWEST POSITION, LOCKED, SIDE RAILS UP, CALL LIGHT WITHIN REACH. ALL NEEDS AND ORDERS ADDRESSED DURING THE SHIFT. IV ACCESS MAINTAINED INTACT, SECURED AND FLUSHING WELL. IV FLUID AND TUBE FEEDING RUNNING PER MD ORDER. ALL DUE MEDS GIVEN ORDERED & SCHEDULED ; PATIENT TOLERATED WELL. BILATERAL SOFT RESTRAINTS RENEWED. PATIENT KEPT CLEAN AND COMFORTABLE WITHIN THE SHIFT. PATIENT ENDORSED TO INCOMING SHIFT RN WITH STABLE VITAL SIGN AND FOR CONTINUITY OF CARE.
[2022-08-01 20:00] VITALS: BP 91/42
--- NOTE | 2022-08-01 20:09 | NUR ---
ATRO INH GIVEN. MED NOT SCANNED BECAUSE INHALER IS IN ROOM WITH PT.
[2022-08-01] MEDS: ATORVASTATIN 40 MG TABLET GT SCH (21:04)
[2022-08-02] VITALS (16 sets, daily range): BP systolic 95–132; BP diastolic 43–57
[2022-08-02] MEDS: VANCOMYCIN 500 MG in IV D5W 100 ML IV SCH (00:01)
[2022-08-02] MEDS: BLOOD SUGAR DIAGNOSTIC 1 EACH STRIP IN SCH ×4 (00:01→17:56)
[2022-08-02] MEDS: INSULIN REGULAR, HUMAN 100 UNIT/ML 3 ML VIAL SQ PRN ×4 (00:14→17:42)
[2022-08-02] MEDS: IV 1/2NS 1000 ML 1,000 ML IV PRN ×2 (01:44→16:52)
[2022-08-02] MEDS: IPRATROPIUM BROMIDE 14 GM INHALER (or 12.9 GM) IH SCH ×6 (03:30→23:30)
--- NOTE | 2022-08-02 03:30 | NUR ---
MARY/RN: PT NOTED WITH INCREASED WORK OF BREATHING. RESPIRATIONS MORE LABORED WITH ACCESSORY MUSCLE USE. SPO2 DROPPED TO MID 80'S. RT AT BESIDE TO PROVIDE NASOPHARYNGEAL SUCTIONING. BLOODY SECRETIONS RETURNED TO CANISTER. PT WAS PLACED ON DOUBLE O2 SET UP HIGH FLOW NASAL CANNULA 40L 100% FIO2 AND NRB MASK 15L. SATURATION ALVARO TO 90-91%. BARI YOU DNP MESSAGED AND MADE AWARE OF SITUATION. PT IS DNR/DNI. WILL CONTINUE WITH PLAN OF CARE.
--- NOTE | 2022-08-02 03:38 | NUR ---
PT NTSUCTION DUE TO DESATURATION. PLACED ON NRB WITH HFNC. SPO2 90%.
[2022-08-02] MEDS: NEPRO 1,000 ML BOTTLE GT PRN (04:16)
--- NOTE | 2022-08-02 04:50 | NUR ---
MARY/RN: MORNING CARE GIVEN. PT NOTED WITH LARGE BLOODY BM. BED BATH GIVEN. LINENS CHANGED.
[2022-08-02 06:33] LABS: CALCIUM, SERUM 8.1 mg/dL (8.5-10.1); CREATININE 1.1 mg/dL (0.6-1.3); POTASSIUM 4.5 mmol/L (3.5-5.1)
--- NOTE | 2022-08-02 07:00 | NUR ---
MARY RN OPENING NOTE: PT IN BED, ASLEEP, ON NON-REBREATHER MASK @ 15L,AND HIGH FLOW TOLERATING WELL. O2 SAT 93%. NOTED WITH LABORED BREATHING ON TELE MONITOR SR WITH HR108. HAS 3 IV ACCESS: KELLEY MIDLINE, RAC #20G AND LT HAND #20G, ALL INTACT AND PATENT. NO S/SX OF INFILTRATION. INFUSING 1/2 OF NS @ 75 ML/HR. NO FACIAL GRIMACING NOTED. HAS BILATERAL SOFT RESTRAINTS. GTF RUNNING NEPRO AT 30 ML/HR. PT TOLERATING WELL. HAS F/C DRAINING DYLAN YELLOW URINE. ALL SAFETY MEASURES IN PLACE. ON AIRBORNE/DROPLET PRECAUTION FOR COVID POSITIVE. BED LOCKED IN LOWEST POSITION AND LOCKED. PLACE CALL LIGHT WITH IN REACH. SIDE RAILS UP X3. WILL CONTINUE TO MONITOR
--- NOTE | 2022-08-02 08:02 | NUR ---
RT Inhaler not given-pt unable to follow instructions
[2022-08-02 08:22] LABS: BASOPHILS % (AUTO) 0.1 % (0.0-2.0); EOSINOPHILS % (AUTO) 0.1 % (0.0-6.0); LYMPHOCYTES # (AUTO) 0.5 K/uL (0.8-4.8); LYMPHOCYTES % (AUTO) 2.3 % (20.0-44.0); MEAN CORPUSCULAR HGB CONC 30 g/dl (31.0-36.0); MEAN CORPUSCULAR VOLUME 88 fL (80-96); MONOCYTES # (AUTO) 1.2 K/uL (0.1-1.30); MONOCYTES % (AUTO) 5.1 % (2.0-12.0); NEUTROPHILS % (AUTO) 92.4 % (43.0-81.0); PLATELET COUNT (AUTO) 238 K/uL (150-450); RED BLOOD CELL COUNT(AUTO) 2.08 MIL/uL (4.5-6.0); WHITE BLOOD COUNT (AUTO) 22.8 K/uL (4.3-11.0)
[2022-08-02] MEDS: DOCUSATE SODIUM LIQ 100 MG/10 ML UDC GT SCH (08:22)
[2022-08-02] MEDS: MULTIVITAMINS,THERAGRAN 1 UDTAB TABLET GT SCH (08:23)
[2022-08-02] MEDS: ZINC SULFATE 220 MG CAPSULE PO SCH (08:23)
[2022-08-02] MEDS: ASCORBIC ACID 500 MG TABLET GT SCH (08:23)
[2022-08-02] MEDS: LEVETIRACETAM SOL (5 ML) 100 MG/ML UDC GT SCH ×2 (08:23→22:00)
[2022-08-02] MEDS: DEXAMETHASONE SOD PHOSPHATE 10 MG/ML VIAL IV SCH (08:23)
[2022-08-02] MEDS: Z GUARD REMEDY 4 OZ OINT TP SCH (08:24)
[2022-08-02] MEDS ORDERED: PANTOPRAZOLE 40 MG/PACK PACK NG SCH (09:00)
[2022-08-02 09:44] LABS: HEMATOCRIT 18 % (39-51); HEMOGLOBIN 5.5 g/dL (13.5-17.5)
--- NOTE | 2022-08-02 10:02 | NUR ---
RN NOTES: RECEIVED HEMOGLOBIN 5.[address] KANG WITH ORDER TO TRANSFUSE 2 UNITS PRBC
[2022-08-02] MEDS: CEFEPIME 2 GM in IV D5W 100 ML IV SCH ×2 (10:31→22:01)
[2022-08-02] MEDS ORDERED: MORPHINE SULFATE INJ 2 MG/ML DISP.SYRIN IV PRN (11:00)
--- NOTE | 2022-08-02 12:19 | NUR ---
Inhaler not given-pt unable to follow instructions
--- NOTE | 2022-08-02 12:35 | NUR ---
RN NOTES: JOSE M TROUGH 23 PHARMACY AWARE WILL ADJUST THE DOSE
[2022-08-02] MEDS ORDERED: ACETAMINOPHEN 650 MG/20.3 ML UDC GT PRN (15:00)
[2022-08-02] MEDS ORDERED: PANTOPRAZOLE 40 MG VIAL IV SCH (17:00)
--- NOTE | 2022-08-02 19:24 | NUR ---
RN CLOSING NOTE PATIENT REMAINS IN ROOM ON 15L OF 02 VIA NRB MASK AND HIGH FLOW. MORPHINE GIVEN PRN ORDERED DUE TO SOB AND LABORED BREATHING. SAFETY MEASURES IMPLEMENTED, BED IN LOWEST POSITION, LOCKED, SIDE RAILS UP, CALL LIGHT WITHIN REACH. ALL NEEDS AND ORDERS ADDRESSED DURING THE SHIFT. IV ACCESS MAINTAINED INTACT, SECURED AND FLUSHING WELL. IV FLUID AND TUBE FEEDING RUNNING PER MD ORDER. ALL DUE MEDS GIVEN ORDERED & SCHEDULED ; PATIENT TOLERATED WELL. PATIENT KEPT CLEAN AND COMFORTABLE WITHIN THE SHIFT. PATIENT ENDORSED TO INCOMING SHIFT RN WITH STABLE VITAL SIGN AND FOR CONTINUITY OF CARE. Addendum: 08/02/22 at 1930 by JOYCE CARBONE RN RN NOTES: SECOND UNIT OF PRBC ONGOING NO REACTION NOTED, ENDORSED TO BIOLOGY INTERN RN
--- NOTE | 2022-08-02 19:40 | NUR ---
MARY RN OPENING NOTES: RECEIVED PT IN BED, ASLEEP, ON NON-REBREATHER MASK @ 15L,AND HIGH FLOW 40L 100% TOLERATING WELL. O2 SAT 97%. STILL NOTED WITH LABORED BREATHING. TELE MONITORING SHOWS HR 92. IV ACCESS: KELLEY MIDLINE, RAC #20G AND LT HAND #20G, ALL INTACT AND PATENT. NO S/S OF INFILTRATIONS. INFUSING 1/2 OF NS @ 60ML/HR. NO FACIAL GRIMACING NOTED. MORPHINE GIVEN AT PREVIOUS SHIFT. GTF WELL TOLERATED. RUNNING NEPRO AT 30 CC/HR. PT TOLERATING WELL. F/C IN PLACE. DRAINING DYLAN COLOR URINE. ALL SAFETY MEASURES IN PLACE. ON AIRBORNE/DROPLET PRECAUTION FOR COVID POSITIVE. BED IN LOWEST POSITION AND LOCKED. PLACE CALL LIGHT WITH IN REACH. SIDE RAILS UP X3. WILL CONTINUE TO MONITOR
--- NOTE | 2022-08-02 20:10 | NUR ---
RN NOTES: UNABLE TO GIVE ATROVENT, PT IS NOT FOLLOWING COMMAND. WILL CONTINUE TO MONITOR
[2022-08-02] MEDS ORDERED: VANCOMYCIN HCL 0.75 GM in IV D5W 250 ML IV SCH (21:00)
[2022-08-02] MEDS: ATORVASTATIN 40 MG TABLET GT SCH (22:00)
--- NOTE | 2022-08-02 22:22 | NUR ---
RN NOTES: TRANSFUSED SECOND UNITS OF BLOOD. PT TOLERATED WELL. V/S STABLE. PT AFEBRILE. NO ADVERSE REACTIONS NOTED. WILL CONTINUE TO MONITOR
--- NOTE | 2022-08-02 23:50 | NUR ---
RN NOTES: UNABLE TO GIVE ATROVENT, PT IS NOT FOLLOWING COMMAND. WILL CONTINUE TO MONITOR
[2022-08-03] VITALS: BP 129/51
[2022-08-03] MEDS: BLOOD SUGAR DIAGNOSTIC 1 EACH STRIP IN SCH ×2 (00:35→06:33)
[2022-08-03] MEDS: INSULIN REGULAR, HUMAN 100 UNIT/ML 3 ML VIAL SQ PRN ×2 (00:37→06:35)
--- NOTE | 2022-08-03 00:39 | NUR ---
RN NOTES: PT'S BLOOD SUGAR 289. 6 UNITS OF REGULAR INSULIN GIVEN. NO S/S OF HYPER/HYPOGLYCEMIA. WILL CONTINUE TO MONITOR
[2022-08-03] MEDS: IPRATROPIUM BROMIDE 14 GM INHALER (or 12.9 GM) IH SCH ×2 (03:30→04:06)
[2022-08-03 04:00] VITALS: BP 92/41
--- NOTE | 2022-08-03 04:08 | NUR ---
RN NOTES: UNABLE TO GIVE ATROVENT, PT IS NOT FOLLOWING ANY COMMAND. WILL CONTINUE TO MONITOR
--- NOTE | 2022-08-03 07:02 | NUR ---
PATIENT NOTED IN THE MONITOR BRADYCARDIC, PATIENT O2 SUDDENLY DROPPING, PT ALREADY IN HF NC AT 40L 100% FIO2 PLUS NRM AT 15L UNABLE TO GET BLOOD PRESSURE AT THIS TIME, IN THE VICE PRESIDENT OF DEVELOPMENT SUDDENLY WENT TO ASYSTOLE, PATIENT DNR/DRI, CAROTID PULSES ABSENT, NO BREATH SOUNDS NOTED, DILATED PUPILS, AVELINO CANDELARIA DNP INFORMED AND DARRYL DE LEON PRIMARY NURSE AND MYSELF ROLO PERRY CHARGE NURSE PRONOUNCED .
--- NOTE | 2022-08-03 07:05 | NUR ---
RN note Patient's sister Feroz called. Informed sister that patient is and reminded to come to the hospital as soon as possible to meet her brother. She inquired about the cause of and said that she needed to make some calls before deciding to come. Afterwards, Miss Redman stopped responding to my questions and hung up. Will follow.
--- NOTE | 2022-08-03 07:29 | NUR ---
RN NOTES: AT 0655, NOTICED PT'S O2 SAT AND HR WAS GOING DOWN. PT WAS ALREADY ON HIGH FLOW O2 40L 100% AND NON-RE BREATHER MASK. UNABLE TO ASSESS THE BP. RT STAT CALLED. NOTED CAROTID PULSE ABSENT. AT 0702, TELE MONITORING SHOWS SINUS ALEX TO ASYSTOLE. INFORMED BARI YOU. CALLED SISTER, ROHIT ALVARADO BUT UNABLE TO REACH. WILL CALL BACK AGAIN. ME-BETTY DE LEON AND CHARGE NURSE- ORLANDO SETH PRONOUNCE .
--- NOTE | 2022-08-03 07:30 | NUR ---
CALLED SISTER ROHIT CÁRDENAS AT [phone] FOR SECOND TIME, INFORMED HER ABOUT PATIENT PASSED AT 0702, RESPONDED ALL QUESTIONS TO HER, AND INFORMED THAT BODY WILL BE FOR 2 HRS STILL IN THE UNIT IN CASE FAMILY WANT TO COME, PER HER SHE NEEDS TIME AND WILL MAKE SOME CALLS BEFORE DECIDE IF SHE COMES, ENDORSED TO ROBERTO CARLOS CHARGE NURSE FOR CONTINUATION OF CARE AND CORRESPOND PAPERWORK.
--- NOTE | 2022-08-03 08:02 | NUR ---
one legacy notified c/o delmi refe number [id number] OK TO RELEASED BODY TO [facility],NURSING OFFICE NOTIFIED.DR. QUIROZ NOTIFIED.ADMITTING NOTIFIED C/O MISHEL,NURSING OFFICE C/O LOVELY NOTIFIED.
--- NOTE | 2022-08-03 08:06 | NUR ---
ADDENDUM DOCUMENTATION ENTERED REGARDING LEGACY CALL MADE BY PARISA SELF RN.
--- NOTE | 2022-08-03 09:05 | NUR ---
RN note Patient's sister came and loyd patient. Forms of release was signed. The next steps regarding the corpse arrangement was explained. They understood. Addendum: 08/03/22 at 1056 by MAEGAN DAVIS RN Last office was provided to patient. Security was contacted to remove the corpse. The body left at 09:20.
[2022-08-03] MEDS ORDERED: VANCOMYCIN 500 MG in IV D5W 100 ML IV SCH (21:00)
== END 2022-08-03 08:11 | DRG 871 ==
LOC: ER 17:48 → TELE-TD 20:48
PROVIDERS: ADMIT Nurse Practitioner Acute Care; ATTEND Internal Medicine
PROC: 30233N1 Transfusion of Nonautologous Red Blood Cells into Peripheral Vein, Percutaneous Approach (ICD-10-PCS; principal; 2022-07-27)
PROC: 05HB33Z Insertion of Infusion Device into Right Basilic Vein, Percutaneous Approach (ICD-10-PCS; 2022-07-28)
DX: A41.89 Other specified sepsis (principal); E43 Unspecified severe protein-calorie malnutrition; G92.8 Other toxic encephalopathy; J12.82 Pneumonia due to coronavirus disease 2019; U07.1 COVID-19; J96.01 Acute respiratory failure with hypoxia; N17.0 Acute kidney failure with tubular necrosis; I62.02 Nontraumatic subacute subdural hemorrhage; I62.03 Nontraumatic chronic subdural hemorrhage; J15.6 Pneumonia due to other Gram-negative bacteria; J15.9 Unspecified bacterial pneumonia; J44.0 Chronic obstructive pulmonary disease with (acute) lower respiratory infection; K92.2 Gastrointestinal hemorrhage, unspecified; E87.0 Hyperosmolality and hypernatremia; N13.30 Unspecified hydronephrosis; R64 Cachexia; N39.0 Urinary tract infection, site not specified; I10 Essential (primary) hypertension; E78.5 Hyperlipidemia, unspecified; R13.10 Dysphagia, unspecified; Z93.1 Gastrostomy status; Z74.01 Bed confinement status; Z66 Do not resuscitate; Z79.51 Long term (current) use of inhaled steroids; Z79.4 Long term (current) use of insulin; E11.9 Type 2 diabetes mellitus without complications; E86.1 Hypovolemia; H70.93 Unspecified mastoiditis, bilateral; E88.09 Other disorders of plasma-protein metabolism, not elsewhere classified; K76.1 Chronic passive congestion of liver; R74.01 Elevation of levels of liver transaminase levels; L89.626 Pressure-induced deep tissue damage of left heel; L89.616 Pressure-induced deep tissue damage of right heel; Z74.09 Other reduced mobility; D53.9 Nutritional anemia, unspecified; E56.9 Vitamin deficiency, unspecified; E86.0 Dehydration; N40.0 Benign prostatic hyperplasia without lower urinary tract symptoms; R65.20 Severe sepsis without septic shock; Z78.9 Other specified health status; L89.106 Pressure-induced deep tissue damage of unspecified part of back; Z98.890 Other specified postprocedural states; M62.50 Muscle wasting and atrophy, not elsewhere classified, unspecified site; B96.89 Other specified bacterial agents as the cause of diseases classified elsewhere
CPT/HCPCS: 31720; 36415; 36600; 70450-TC; 71045-TC; 76770-TC; 80048-TC; 80061-TC; 80076-TC; 80202-TC; 81001; 82272-TC; 82607-TC; 82803-TC; 82945-TC; 82962-TC; 83605-TC; 83735-TC; 83880; 84100-TC; 84484-TC; 85025-TC; 85027-TC; 85378-TC; 85730-TC; 86140-TC; 86850-TC; 87040-TC; 87081-TC; 87086-TC; 94760-TC; 94799-TC; A4223; A6403; C9113; G0378; J0456; J0692; J0696; J1100; J1815; J1953; J2270; J3370; J3490; J7030; J7040; J7050; J7060; J7070; P9016